=== PATIENT | female | born 1975 | race American Indian/Alaskan Native ===

== ENCOUNTER 2018-09-15 06:25 | Emergency (ER) | payer MEDICAID ==
[2018-09-15] MEDS ORDERED: ASPIRIN PO ONE (06:33)
[2018-09-15 06:50] LABS: Hematocrit 39.2 % (30.3-42.9); Hemoglobin 13.3 gm/dl (10.1-14.3); Mean Corpuscular HGB Conc 34 % (30-34); Mean Corpuscular Volume 90 fl (79-97); Platelet Count 255 K/mm3 (140-440); Red Blood Count 4.37 M/mm3 (3.65-5.03)
--- NOTE | 2018-09-15 06:52 | Emergency Department Report ---
ED Chest Pain HPI - General Chief Complaint: Chest Pain Stated Complaint: CHEST PAIN Time Seen by Provider: 09/15/18 06:43 Source: patient Mode of arrival: Ambulatory Limitations: No Limitations - History of Present Illness Initial Comments: 43-year-old -[place] female presents to the emergency department from home with complaint of some left-sided chest pain that started yesterday evening. She says it radiates up towards her neck and down towards the arm. She says it is a sharp pain that worsens with deep breathing. She also says that the pain is reproducible with certain positions. She was trying to get some sleep, figuring the pain would go away, but it woke her from sleep and sometimes Her from getting to sleep, especially when laying on her left side. She took some Advil for her symptoms without any relief. She does admit to some shortness of breath but denies any nausea, vomiting, fever or diaphoresis. She denies any tobacco or illicit drug use. She denies any past medical history. No Primary care physician. No recent travel or sick contacts at home. - Related Data Previous Rx's Medication Instructions Recorded Last Taken Type HYDROcodone/APAP 5-325 [Jay 1 each PO Q6HR PRN #16 tablet 05/17/16 Unknown Rx 5/325] Ondansetron [Zofran Odt] 4 mg PO Q8HR PRN #10 tab.rapdis 05/17/16 Unknown Rx levoFLOXacin [Levaquin] 750 mg PO QDAY #7 tablet 05/17/16 Unknown Rx HYDROcodone/APAP 5-325 [Jay 1 each PO Q6HR PRN #10 tablet 09/15/18 Unknown Rx 5/325] Ibuprofen [Motrin 800 MG tab] 800 mg PO Q8HR PRN #20 tablet 09/15/18 Unknown Rx Allergies Allergy/AdvReac Type Severity Reaction Status Date / Time No Known Allergies Allergy Verified 09/15/18 06:32 Heart Score - HEART Score History: Slightly suspicious EKG: Normal Age: < 45 Risk factors: No known risk factors Troponin: < normal limit HEART Score: 0 - Critical Actions Critical Actions: 0-3 pts:0.9-1.7%risk of adverse cardiac event.Candidate for discharge ED Review of Systems ROS: Stated complaint: CHEST PAIN Other details as noted in HPI Constitutional: denies: chills, fever Eyes: denies: eye pain, vision change ENT: denies: ear pain, throat pain Respiratory: shortness of breath. denies: cough Cardiovascular: chest pain. denies: palpitations Gastrointestinal: denies: abdominal pain, vomiting Genitourinary: denies: dysuria, discharge Musculoskeletal: denies: back pain, joint swelling Skin: denies: rash, lesions Neurological: denies: headache, weakness ED Past Medical Hx - Past Medical History Previous Medical History?: Yes Additional medical history: Ectopic - Surgical History Past Surgical History?: Yes Additional Surgical History: hysterectomy - Social History Smoking Status: Never Smoker Substance Use Type: None - Medications Home Medications: Home Medications Medication Instructions Recorded Confirmed Last Taken Type HYDROcodone/APAP 5-325 [Jay 1 each PO Q6HR PRN #16 tablet 05/17/16 Unknown Rx 5/325] Ondansetron [Zofran Odt] 4 mg PO Q8HR PRN #10 tab.rapdis 05/17/16 Unknown Rx levoFLOXacin [Levaquin] 750 mg PO QDAY #7 tablet 05/17/16 Unknown Rx HYDROcodone/APAP 5-325 [Jay 1 each PO Q6HR PRN #10 tablet 09/15/18 Unknown Rx 5/325] Ibuprofen [Motrin 800 MG tab] 800 mg PO Q8HR PRN #20 tablet 09/15/18 Unknown Rx ED Physical Exam - General Limitations: No Limitations - Other Other exam information: GENERAL: The patient is well-developed well-nourished. HENT: Normocephalic. Atraumatic. Patient has moist mucous membranes. EYES: Extraocular motions are intact. NECK: Supple. Trachea is midline. CHEST/LUNGS: Clear to auscultation. There is no respiratory distress noted. There is some reproducible tenderness to palpation along the left side of the chest wall, but no crepitus or deformity. HEART/CARDIOVASCULAR: Regular. There is no tachycardia. There is no murmur. ABDOMEN: Abdomen is soft, nontender. Patient has normal bowel sounds. There is no abdominal distention. SKIN: Skin is warm and dry. NEURO: The patient is awake, alert, and oriented. The patient is cooperative. The patient has no focal neurologic deficits. The patient has normal speech. MUSCULOSKELETAL: There is no tenderness or deformity. There is no limitation range of motion. There is no evidence of acute injury. ED Course Vital Signs 09/15/18 09/15/18 09/15/18 07:10 08:00 08:32 Temperature 97.2 F L Respiratory Rate Blood Pressure 125/76 120/79 Blood Pressure [Right] O2 Sat by Pulse 99 Oximetry 09/15/18 09/15/18 09/15/18 09:01 10:00 10:47 Temperature 97.2 F L Respiratory 18 Rate Blood Pressure 130/83 116/76 Blood Pressure 116/67 [Right] O2 Sat by Pulse 99 100 100 Oximetry UMESH score - Umesh Score Age > 65: (0) No Aspirin use within the Past 7 Days: (0) No 3 or more CAD Risk Factors: (0) No 2 or more Angina events in past 24 hrs: (0) No Known CAD with more than 50% Stenosis: (0) No Elevated Cardiac Markers: (0) No ST Deviation Greater than 0.5mm: (0) No UMESH Score: 0 ED Medical Decision Making - Lab Data Result diagrams: 09/15/18 06:38 09/15/18 06:38 - EKG Data -: EKG Interpreted by [place] EKG shows normal: sinus rhythm, axis, intervals, QRS complexes, ST-T waves Rate: normal - EKG Data When compared to previous EKG there are: previous EKG unavailable Interpretation: normal EKG - Radiology Data Radiology results: image reviewed interpreted by me: Chest x-ray does not show any acute process. There are no pleural effusions, obvious pneumonia and there is no pneumothorax. - Medical Decision Making Patient presents with some left-sided chest pain that started yesterday evening. It worsens with palpation and certain movements. It is reproducible to palpation on examination but no crepitus or deformity. Chest x-ray does not show any focal consolidation, pneumothorax, pneumonia, pleural effusions or any acute process. Labs have been unremarkable including negative troponins 2 and a negative d-dimer. The patient is very low on the heart score criteria and the UMESH score. It appears more consistent with costochondritis or chest wall pa in. Her vital signs and stable throughout her ED course. She was given some pain medication and anti-inflammatories and had some improvement in her symptoms. She appears safe for discharge home at this time but has been given a referral for cardiology. She will return to the ER with any worsening of her symptoms or any acute distress. - Differential Diagnosis costochondritis, WI, PE, pneumonia Critical Care Time: No Critical care attestation.: If time is entered above; I have spent that time in minutes in the direct care of this critically ill patient, excluding procedure time. ED Disposition Clinical Impression: Atypical chest pain, Costochondritis Disposition: TO HOME OR SELFCARE Is pt being admited?: No Condition: Stable Instructions: Chest Pain (ED), Costochondritis (ED) Additional Instructions: Please follow up with a primary care physician in the next few days. I am also giving you a referral for a local core extruder, Dr. Ferreira, to follow up regarding your chest/chest wall pain. Return to the emergency Department with any worsening of your symptoms or any acute distress. You have been prescribed a medication that is sedating and therefore should not be taken prior to driving, working, and responsible for children and in no way should be mixed with alcohol of any quantity. Prescriptions: Ibuprofen [Motrin 800 MG tab] 800 mg PO Q8HR PRN #20 tablet PRN Reason: Pain , Severe (7-10) HYDROcodone/APAP 5-325 [Jay 5/325] 1 each PO Q6HR PRN #10 tablet PRN Reason: Pain Referrals: DEACON NEWTON MD [Staff Physician] - 2-3 Days [facility] [Outside] - 2-3 Days Forms: Work/School Release Form(ED) Time of Disposition: 10:29
--- NOTE | 2018-09-15 07:03 | XRay Report ---
PROCEDURE: XR CHEST 1V AP TECHNIQUE: Chest radiograph single view. HISTORY: Chest Pain COMPARISONS: None . FINDINGS: No mediastinal shift. Cardiac silhouette is not enlarged. No pneumothorax, effusion, or focal pulmona ry opacity identified. No acute skeletal findings. IMPRESSION: No acute pulmonary finding identified. This document is electronically signed by Fermin Bonilla MD., Sep 15 2018 07:01:39 AM ET
[2018-09-15 07:12] LABS: BUN/Creatinine Ratio 16; Blood Urea Nitrogen 8 mg/dL (7-17); Calcium 8.5 mg/dL (8.4-10.2); Hemolysis Index 26
[2018-09-15] MEDS ORDERED: NORCO 5/325 PO ONE (07:18)
[2018-09-15 07:26] LABS: Basophils % (Manual) 0 % (0.0-1.8); RBC Morphology Normal; Total Cells Counted 100
[2018-09-15] MEDS ORDERED: TORADOL IM ONE (07:47)
[2018-09-15 10:48] VITALS: BP 116/67
== END 2018-09-15 10:48 | disposition home or self-care (01) ==
LOC: ED 06:25
DX: M94.0 Chondrocostal junction syndrome [Tietze] (principal); Z90.710 Acquired absence of both cervix and uterus
CPT/HCPCS: 36415; 71045; 80048; 84484; 85007; 85025; 85379; 93005; 93010; 96372; 99284; J1885